=== PATIENT | male | born 1950 | race African-American/Black ===

== ENCOUNTER 2020-09-28 03:07 | Emergency (ER) | payer MEDICARE, OTHER ==
[~2020-09-28] VITALS: Ht 188 cm; Wt 86.6 kg
--- NOTE | 2020-09-28 03:15 | NUR ---
PATIENT CAME TO ER BED 3 C/O NON-RADIATING MIDSTERNAL CHEST PAIN THAT OCCURRED ON-AND-OFF YESTERDAY AT AROUND 1100 AND TODAY THAT LASTED AROUND 45MINUTES AT AROUND 1800. PATIENT IS AAOX4. NO SOB. BREATHING EVENLY AND UNLABORED ON ROOM AIR. CONNECTED TO THE PROGRAM SCHEDULER.
--- NOTE | 2020-09-28 03:20 | NUR ---
BLOOD DRAWN AND SENT TO THE LAB.
[2020-09-28 03:21] LABS: BASOPHILS % (AUTO) 0.6 % (0.0-2.0); EOSINOPHILS % (AUTO) 5.1 % (0.0-6.0); HEMATOCRIT 41 % (39-51); HEMOGLOBIN 13.7 g/dL (13.5-17.5); LYMPHOCYTES # (AUTO) 2.1 /CMM (0.8-4.8); LYMPHOCYTES % (AUTO) 29.8 % (20.0-44.0); MEAN CORPUSCULAR HGB CONC 34 g/dl (31.0-36.0); MEAN CORPUSCULAR VOLUME 91 fL (80-96); MONOCYTES # (AUTO) 0.5 /CMM (0.1-1.30); MONOCYTES % (AUTO) 7.1 % (2.0-12.0); NEUTROPHILS % (AUTO) 57.4 % (43.0-81.0); PLATELET COUNT (AUTO) 196 /CMM (150-450)
[2020-09-28 03:29] LABS: CARBON DIOXIDE 30 mmol/L (21-32); CHLORIDE 103 mmol/L (98-107); CREATININE 1.1 mg/dL (0.6-1.3); GLUCOSE 94 mg/dL (74-106); POTASSIUM 3.7 mmol/L (3.5-5.1); SODIUM SERUM 141 mmol/L (136-145); UREA NITROGEN, BLOOD 21 mg/dL (7-18)
--- NOTE | 2020-09-28 04:17 | NUR ---
IV removed. Catheter intact and site benign. Pressure and 4x4 applied to site. No bleeding noted.
[2020-09-28 04:57] VITALS: BP 127/78
--- NOTE | 2020-09-28 04:57 | NUR ---
Patient discharged to home in stable condition. Written and verbal after care instructions given. Patient verbalizes understanding of instruction.
== END 2020-09-28 04:28 | disposition home or self-care (01) ==
LOC: ER 03:07
DX: R07.89 Other chest pain (principal)
CPT/HCPCS: 36415; 71045-TC; 80048-TC; 84484-TC; 85025-TC